=== PATIENT | male | born 1980 | race Caucasian/White ===

== ENCOUNTER 2022-05-10 07:29 | Emergency (ER) | payer BC, OTHER ==
[2022-05-10] MEDS: Lidocaine 1% 10 ML MDV INJECT ONE ×2 (08:27→08:45)
[2022-05-10] MEDS ORDERED: Diphtheria,Pertussis(Acell),Tetanus Vaccine 0.5 ML Syringe IM ONE (08:47)
== END 2022-05-10 09:15 | disposition home or self-care (01) ==
LOC: JD.ED 07:29
DX: S61.412A Laceration without foreign body of left hand, initial encounter (principal); S64.02XA Injury of ulnar nerve at wrist and hand level of left arm, initial encounter; Z23 Encounter for immunization; W26.0XXA Contact with knife, initial encounter
CPT/HCPCS: 12002; 90471; 90715; 99282-25; 99283; J3490